=== PATIENT | female | born 1965 | race Caucasian/White ===

== ENCOUNTER → 2019-04-12 10:07 | Outpatient (BNVA) | payer MEDICARE, OTHER, SELFPAY | PROVIDERS: Family Provider Family Medicine; PCP Family Medicine; Visit Provider Specialist | DX: G43.711 Chronic migraine without aura, intractable, with status migrainosus (principal) | CPT/HCPCS: 64615; J0585 ==

== ENCOUNTER 2019-04-17 15:01 | Outpatient (CLI) | payer MEDICARE, OTHER, SELFPAY ==
--- NOTE | 2019-04-17 15:06 | XR_ITS ---
WS: [id number] CHEST 2 VIEWS HISTORY: SHORTNESS OF BREATH COMPARISON: 04/06/2018 Lungs: Mild pulmonary hyperexpansion with emphysema. Improved aeration at the lingula and RIGHT middl e lobe. No pneumonia. Normal vasculature. Cardiac size: Normal. Mediastinum/Aorta: Normal mediastinum. Bones: Normal. XR/XR chest 2V* [id number] IMPRESSION: Mild emphysema. No pneumonia.
== END 2019-04-17 15:02 | disposition home or self-care (01) ==
LOC: RADWPI 15:05
PROVIDERS: Family Provider Family Medicine; PCP Family Medicine; Referring Provider Family Medicine; Visit Provider Family Medicine
DX: J43.9 Emphysema, unspecified (principal); R06.02 Shortness of breath
CPT/HCPCS: 71046

== ENCOUNTER → 2019-04-19 09:42 | Outpatient (BNVA) | payer MEDICARE, OTHER, SELFPAY | PROVIDERS: Family Provider Family Medicine; PCP Family Medicine; Visit Provider Psychiatry & Neurology Psychiatry | DX: F33.40 Major depressive disorder, recurrent, in remission, unspecified (principal); F41.0 Panic disorder [episodic paroxysmal anxiety]; F43.12 Post-traumatic stress disorder, chronic | CPT/HCPCS: 99213 ==

== ENCOUNTER → 2019-06-06 13:41 | Outpatient (BNVA) | payer MEDICARE, OTHER, SELFPAY | PROVIDERS: Family Provider Family Medicine; PCP Family Medicine; Visit Provider Psychiatry & Neurology Psychiatry | DX: F33.40 Major depressive disorder, recurrent, in remission, unspecified (principal); F41.0 Panic disorder [episodic paroxysmal anxiety]; F43.12 Post-traumatic stress disorder, chronic | CPT/HCPCS: 99213 ==

== ENCOUNTER 2019-06-20 14:15 | Outpatient (CLI) | payer MEDICARE, OTHER, SELFPAY ==
--- NOTE | 2019-06-20 14:34 | XR_ITS ---
WS: [id number] XR chest 2V* [id number] REASON FOR EXAM: RIB PAIN RIGHT SIDED FINDINGS: Cervical rib is seen on the right side. [place] the lung heath are mildly hyper aerated. There is granulomas in the left hilum. The heart is not enlarged. The lung heath show no definite pneumonia, pleural effusion, pulmonary edema, or mass effect. The hilum and apices otherwise normal. The rib cage did not show definite fractures in the frontal views. XR/XR chest 2V* [id number] IMPRESSION: Chronic obstructive pulmonary disease. Calcified granulomas left hilum.
== END 2019-06-20 14:16 | disposition home or self-care (01) ==
PROVIDERS: Family Provider Family Medicine; PCP Family Medicine; Visit Provider Nurse Practitioner Family
DX: J44.9 Chronic obstructive pulmonary disease, unspecified (principal); R07.81 Pleurodynia; J84.10 Pulmonary fibrosis, unspecified
CPT/HCPCS: 71046

== ENCOUNTER → 2019-07-26 11:45 | Outpatient (BNVA) | payer MEDICARE, OTHER, SELFPAY | PROVIDERS: Family Provider Family Medicine; PCP Family Medicine; Visit Provider Specialist | DX: G43.711 Chronic migraine without aura, intractable, with status migrainosus (principal) | CPT/HCPCS: 64615; J0585 ==

== ENCOUNTER → 2019-09-05 08:18 | Outpatient (BNVA) | payer MEDICARE, OTHER, SELFPAY | PROVIDERS: Family Provider Family Medicine; PCP Family Medicine; Visit Provider Psychiatry & Neurology Psychiatry | DX: F33.40 Major depressive disorder, recurrent, in remission, unspecified (principal); F41.0 Panic disorder [episodic paroxysmal anxiety]; F43.12 Post-traumatic stress disorder, chronic | CPT/HCPCS: 99214 ==

== ENCOUNTER → 2019-10-17 07:38 | Outpatient (BNVA) | payer MEDICARE, OTHER, SELFPAY | PROVIDERS: Family Provider Family Medicine; PCP Family Medicine; Visit Provider Psychiatry & Neurology Psychiatry | DX: F43.12 Post-traumatic stress disorder, chronic (principal); F41.0 Panic disorder [episodic paroxysmal anxiety]; F33.9 Major depressive disorder, recurrent, unspecified | CPT/HCPCS: 99214 ==

== ENCOUNTER 2019-11-17 14:20 | Emergency (ER) | payer MEDICARE, OTHER, SELFPAY ==
[2019-11-17] VITALS (8 sets, daily range): BP systolic 97–124; BP diastolic 66–78; PULSE 89–114; RESP 20–26; TEMP 37.2–37.6; O2SAT 93–99; BMI 22.9
--- NOTE | 2019-11-17 15:30 | XRR_ITS ---
PROCEDURE INFORMATION: Exam: XR Chest, 1 View Exam date and time: 11/17/2019 3:33 PM Age: 54 years old Clinical indication: Cough; Additional info: Cough/congestion TECHNIQUE: Imaging protocol: XR of the chest Views: 1 view. COMPARISON: CR XR chest 2V* [id number] 06/20/2019 2:40 PM FINDINGS: Lungs: The lungs are hyperinflated with unchanged basilar prominence compatible with probable COPD with fibrosis.No consolidation. The pulmonary vascularity is within normal limits. Pleural space: Unremarkable. No pleural effusion. No pneumothorax. Heart/Mediastinum: Unremarkable. No cardiomegaly. Bones/joints: No acute abnormality. XR/XR chest 1V portable [id number] IMPRESSION: No acute findings.
--- NOTE | 2019-11-17 15:38 | ED_ITS ---
HPI - Fever General: Chief Complaint: Fever Stated Complaint: sob Time Seen by Provider: 11/17/19 15:19 History of Present Illness: HPI Narrative: 54-year-old pleasant female presents to the emergency department with cough and congestion for the past 2 days. She reports fever at home of 102.8 that started last night. She reports history of COPD with chronic oxygen use, stopped smoking in 2013. She reports green sputum production and wheezing. She reports no ill contacts. Reports headache when fever occurs. She has been tolerating oral fluid and liquids. She denies nausea vomiting. She reports chronic abdominal pain, RUQ for years under the care of gastroenterology and [place], she reports no change to her pain. MD elicited complaint: fever and malaise Onset (ago): day(s) (3-4) Exacerbating factors: exertion Associated symptoms: Reports abdominal pain (Chronic), chills, cough, headache(s), nasal congestion and nausea; Deny chest pain, confusion, dysuria or vomiting Treatments prior to arrival fever: acetaminophen Review of Systems General: Reports: 10 or more systems reviewed and unremarkable except in HPI and below Const: Reports: fever(s), chills, body aches, fatigue and malaise Eyes: Denies: blurry vision or eye redness ENMT: Reports: nasal congestion Card: Denies: chest pain, palpitations or irregular heart rhythm Resp: Reports: dyspnea, productive cough and wheezing; Denies: non-productive cough GI: Reports: abdominal pain (Chronic) and nausea; Denies: vomiting or dysphagia : Denies: difficulty voiding or dysuria Musc: Denies: back pain Skin/Breast: Denies: rash or pruritus Neuro: Reports: headache(s); Denies: sensory changes, difficulty walking or confusion Psych: Reports: anxiety (Per history) and depression (Per history) Sven/Lymph: Denies: easy bruising PFS ED PFSH: Medical History (Updated 11/17/19 @ 17:35 by EDSON Richter) Depression, major, recurrent, in remission Panic disorder [episodic paroxysmal anxiety] Post-traumatic stress disorder, chronic Social History Smoking and tobacco status: never smoked Second hand smoke exposure: No Physical Exam Const: COMMON NORMALS: no acute distress, patient oriented x3, healthy appearing and alert GENERAL APPEARANCE: cooperative and well hydrated HENMT: COMMON NORMALS: normocephalic, TM's normal bilaterally, Normal external nose present and moist oral mucous membranes HEAD & SCALP: normocephalic FACE & SINUS: normal facial exam and sinuses nontender NOSE: Normal external nose present and Normal nares present TYMPANIC MEMBRANE: TM's normal bilaterally MOUTH: Normal oral and palatal mucosa present THROAT: posterior oropharynx normal Eye: COMMON NORMALS: Equal, round and reactive pupils present and EOMs intact bilaterally GENERAL EYE: appearance normal, both eyes and all related structures PUPIL: Yes Equal, round and reactive pupils present Neck/C-Spine: COMMON NORMALS: full ROM and no lymphadenopathy GENERAL: Yes normal visual inspection and Yes trachea midline CERVICAL SPINE: Yes cervical ROM normal Lymph: LYMPHATIC: no lymphadenopathy noted Chest: COMMONS NORMALS: normal inspection of the chest Resp: COMMON NORMALS: normal respiratory effort EFFORT & INSPECTION: Yes able to speak in complete sentences AUSCULTATION: rhonchi throughout and diminished lung sounds bilateral Cardio: COMMON NORMALS: regular rhythm, S1 normal heart sound present and S2 normal heart sound present RHYTHM: regular rhythm HEART SOUNDS: S1 normal heart sound present and S2 normal heart sound present GI: COMMON NORMALS: Soft to palpation INSPECTION: Yes normal to inspection AUSCULTATION: Yes normoactive bowel sounds PALPATION: Yes Soft to palpation and Yes Tenderness to palpation present (GI) Details: RUQ : COMMON NORMALS: Yes no CVA tenderness BLADDER/KIDNEY EXAM: Yes no CVA tenderness Back/Pelvis: COMMON NORMALS: no CVA tenderness and thoracic and lumbar spine normal to inspection Extremity: COMMON NORMALS: normal to inspection and capillary refill normal Neuro: COMMON NORMALS: patient oriented x3 and no focal motor deficits SENSORIUM/ORIENTATION: Yes alert Psych: COMMON NORMALS: mental status grossly normal, Normal thought process present and cooperative ACTIVITY/MOTOR BEHAVIOR: Yes appropriate eye contact THOUGHT PROCESS: Normal thought process present Skin: COMMON NORMALS: no rashes or lesions noted and turgor normal GENERAL SKIN EXAM: no rashes or lesions noted and turgor normal Course ED course: 54-year-old female patient presents to the emergency room with cough and congestion. Chest x-ray negative for infiltrate or acute disease. She requests to go home, does not want stay in the hospital. COVID-19 testing pending at this time. She agrees to stay quarantined. O2 saturation has maintained 95 to 99% on 2 L nasal cannula, chronic O2 use at home. Vital Signs: Vital signs: Vital Signs Temperature 99.6 F 11/17/19 15:08 Pulse Rate 89 11/17/19 18:00 Respiratory Rate 24 H 11/17/19 16:39 Blood Pressure 124/67 11/17/19 16:39 Pulse Oximetry 99 11/17/19 18:00 MDM - Fever Lab Data: Labs: Lab Results 11/17/19 11/17/19 11/17/19 Range/Units 16:22 16:26 16:26 WBC 16.0 H (4.0-10.0) 10^3/ uL RBC 4.17 (4.1-5.3) 10^6/u L Hgb 13.2 (11.5-15.3) g/dL Hct 40.8 (37.0-47.0) % MCV 97.8 (81-99) fL MCH 31.7 (28.0-34.0) pg MCHC 32.4 (30.0-36.0) g/dL RDW 12.1 (12.1-15.1) % Plt Count 229 (130-400) 10^3/c mm MPV 10.2 (7.4-10.4) fL Neut % (Auto) 82.4 % Lymph % (Auto) 9.1 % [place] % (Auto) 7.5 % Eos % (Auto) 0.3 % Baso % (Auto) 0.3 % Neut # (Auto) 13.16 H (1.8-7.7) 10^3/u L Lymph # (Auto) 1.5 (0.8-4.8) 10^3/u L [place] # (Auto) 1.2 H (0.2-0.9) 10^3/u L Eos # (Auto) 0.0 (0.0-0.8) 10^3/u L Baso # (Auto) 0.1 (0.0-0.1) 10^3/u L Nucleated RBC % (a uto) 0 % Nucleated RBCs # 0.0 /100WBC Sodium 140 (136-145) mmol/L Potassium 4.3 (3.5-5.1) mmol/L Chloride 103 (98-107) mmol/L Carbon Dioxide 28 (22-29) mmol/L Anion Gap 13.3 (5-19) BUN 11 (6-20) mg/dL Creatinine 0.8 (0.5-0.9) mg/dL GFR Calculation 74.7 L (90-130) mL/min Glucose 105 (65-115) mg/dL Calculated Osmolal ity 286 (285-295) mOsm/k g Lactate (0.5-2.2) mmol/L Calcium 9.0 (8.5-10.5) mg/dL Total Bilirubin 0.5 (0.15-1.2) mg/dL AST 20 (0-32) U/L ALT 9 (0-33) U/L Alkaline Phosphata se 91 (35-105) IU/L Total Protein 6.3 L (6.6-8.7) g/dL Albumin 4.4 (3.5-5.2) g/dL Globulin 1.9 (1.3-4.6) g/dL Lipase 12 L (13-60) U/L Urine Color Straw (Yellow) Urine Appearance Clear (CLEAR) Urine pH 7 (5-7) Ur Specific Gravit y 1.005 (1.005-1.030) Urine Protein Neg (Negative) Urine Glucose (UA) Norm (Normal) Urine Ketones Negative (Negative) Urine Blood Neg (Negative) Urine Nitrate Negative (Negative) Urine Bilirubin Neg (NEGATIVE) Urine Urobilinogen Norm (Negative) mg/dL Ur Leukocyte Trinh ase Negative (Negative) 11/17/19 Range/Units 16:26 WBC (4.0-10.0) 10^3/ uL RBC (4.1-5.3) 10^6/u L Hgb (11.5-15.3) g/dL Hct (37.0-47.0) % MCV (81-99) fL MCH (28.0-34.0) pg MCHC (30.0-36.0) g/dL RDW (12.1-15.1) % Plt Count (130-400) 10^3/c mm MPV (7.4-10.4) fL Neut % (Auto) % Lymph % (Auto) % [place] % (Auto) % Eos % (Auto) % Baso % (Auto) % Neut # (Auto) (1.8-7.7) 10^3/u L Lymph # (Auto) (0.8-4.8) 10^3/u L [place] # (Auto) (0.2-0.9) 10^3/u L Eos # (Auto) (0.0-0.8) 10^3/u L Baso # (Auto) (0.0-0.1) 10^3/u L Nucleated RBC % (a uto) % Nucleated RBCs # /100WBC Sodium (136-145) mmol/L Potassium (3.5-5.1) mmol/L Chloride (98-107) mmol/L Carbon Dioxide (22-29) mmol/L Anion Gap (5-19) BUN (6-20) mg/dL Creatinine (0.5-0.9) mg/dL GFR Calculation (90-130) mL/min Glucose (65-115) mg/dL Calculated Osmolal ity (285-295) mOsm/k g Lactate 1.1 (0.5-2.2) mmol/L Calcium (8.5-10.5) mg/dL Total Bilirubin (0.15-1.2) mg/dL AST (0-32) U/L ALT (0-33) U/L Alkaline Phosphata se (35-105) IU/L Total Protein (6.6-8.7) g/dL Albumin (3.5-5.2) g/dL Globulin (1.3-4.6) g/dL Lipase (13-60) U/L Urine Color (Yellow) Urine Appearance (CLEAR) Urine pH (5-7) Ur Specific Gravit y (1.005-1.030) Urine Protein (Negative) Urine Glucose (UA) (Normal) Urine Ketones (Negative) Urine Blood (Negative) Urine Nitrate (Negative) Urine Bilirubin (NEGATIVE) Urine Urobilinogen (Negative) mg/dL Ur Leukocyte Trinh ase (Negative) Imaging Data^: CXR: Radiologist's impression: no acute disease Discharge Plan Discharge Patient Disposition: Home Clinical Impression: COPD (chronic obstructive pulmonary disease) with acute bronchitis Condition: Stable Prescriptions: New doxycycline hyclate 100 mg tablet 100 mg PO BID 7 Days Qty: 14 RF: 0 Tessalon Perles 100 mg capsule 100 mg PO Q4H PRN (Reason: cough) Qty: 14 RF: 0 prednisone 20 mg tablet 20 mg PO BID 5 Days Qty: 10 RF: 0 No Action levalbuterol tartrate [Xopenex HFA] 45 mcg/actuation HFA aerosol inhaler 2 inh INHALATION Q6H PRN (Reason: shortness of breath) RF: 0 montelukast [Singulair] 10 mg tablet 10 mg PO QDAY RF: 0 Spiriva Respimat 2.5 mcg/actuation mist 2 puff INHALATION QAM RF: 0 bupropion HCl [Wellbutrin XL] 150 mg tablet extended release 24 hr 150 mg PO DAILY Qty: 30 RF: 5 bupropion HCl [Wellbutrin XL] 300 mg tablet extended release 24 hr 300 mg PO DAILY Qty: 30 RF: 5 methylphenidate HCl [Ritalin] 20 mg tablet 20 mg PO BID 30 Days Qty: 60 RF: 0 sertraline 50 mg tablet 150 mg PO DAILY Qty: 90 RF: 5 methylphenidate HCl [Ritalin] 20 mg tablet 20 mg PO BID 30 Days Qty: 60 RF: 0 sumatriptan succinate 100 mg tablet 100 mg PO Q2H PRN (Reason: migraine headache) Qty: 9 RF: 4 temazepam 15 mg capsule 15 mg PO .HS Qty: 14 RF: 0 topiramate [Topamax] 50 mg tablet 50 mg PO BID Qty: 60 RF: 2 Discharge Orders: Discharge Order (Routine); Ordered 11/17/19 Ordered By: Tessy Champion Discharge Diet: Usual diet Discharge Activity: Resume usual activity Patient Instructions: COPD - Emphysema, Chronic Obstructive Pulmonary Disease (ED) Activity Restrictions/Additional Instructions: Take antibiotics until all gone increase fluid intake - drink lots of fluids follow up with your primary care physician next week Continue breathing treatments as directed Take prednisone with food If you develop difficulty breathing, blood in sputum, worsening cough or more concerning symptoms, return to the ED Coding Level of Care Code ED Counter Supply Worker for Sanjana Fwd Exam Comprehensive
[2019-11-17] MEDS: albuterol 8 gm MDI 2 PUFF INHALATION (15:52)
[2019-11-17 16:46] LABS: Basophils # 0.1 10^3/uL (0.0-0.1); Basophils % 0.3 %; Eosinophils % 0.3 %; Hematocrit 40.8 % (37.0-47.0); Hemoglobin 13.2 g/dL (11.5-15.3); Lymphocytes # 1.5 10^3/uL (0.8-4.8); Lymphocytes % 9.1 %; Mean Corpuscular HGB Conc 32.4 g/dL (30.0-36.0); Mean Corpuscular Hemoglobin 31.7 pg (28.0-34.0); Mean Corpuscular Volume 97.8 fL (81-99); Mean Platelet Volume 10.2 fL (7.4-10.4); Monocytes # 1.2 10^3/uL (0.2-0.9); Monocytes % 7.5 %; Neutrophils # 13.16 10^3/uL (1.8-7.7); Neutrophils % 82.4 %; Nucleated Red Blood Cells % 0 %; Platelet Count 229 10^3/cmm (130-400); Red Blood Count 4.17 10^6/uL (4.1-5.3); Red Cell Distribution Width 12.1 % (12.1-15.1)
[2019-11-17 16:59] LABS: Add Urine Microscopic? NO
[2019-11-17 17:14] LABS: Bilirubin Urine Neg (NEGATIVE); Blood Urine Neg (Negative); Glucose Urine UA Norm (Normal); Ketones Urine Negative (Negative); Leukocyte Esterase Urine Negative (Negative); Nitrate Urine Negative (Negative); Protein Urine Neg (Negative); Specific Gravity, Urine 1.005 (1.005-1.030); Urine Appearance Clear (CLEAR); Urine Color Straw (Yellow); Urobilinogen Urine Norm (Negative); pH Urine 7 (5-7)
[2019-11-17 17:20] LABS: Alanine Aminotransferase 9 U/L (0-33); Albumin Level 4.4 g/dL (3.5-5.2); Alkaline Phosphatase 91 IU/L (35-105); Blood Urea Nitrogen 11 mg/dL (6-20); Carbon Dioxide 28 mmol/L (22-29); Chloride 103 mmol/L (98-107); Globulin 1.9 g/dL (1.3-4.6); Glomerular Filtration Rate 74.7 mL/min (90-130); Glucose 105 mg/dL (65-115); Lipase 12 U/L (13-60); Osmolality Calculated 286 mOsm/kg (285-295); Sodium 140 mmol/L (136-145); Total Bilirubin 0.5 mg/dL (0.15-1.2); Total Protein 6.3 g/dL (6.6-8.7)
[2019-11-17 17:25] LABS: Anion Gap 13.3 (5-19); Aspartate Amino Transferase 20 U/L (0-32); Potassium 4.3 mmol/L (3.5-5.1)
[2019-11-17 18:08] LABS: Lactate (Lactic Acid level) 1.1 mmol/L (0.5-2.2)
[2019-11-17] MEDS: acetaminophen 325 mg Tablet 650 MG PO (18:34)
[2019-11-19 14:34] LABS: Quest SARS-CoV-2 RNA NOT DETECTED (NOT DETECTED)
== END 2019-11-17 18:46 | disposition home or self-care (01) ==
PROVIDERS: Emergency Provider Nurse Practitioner Family
DX: J44.0 Chronic obstructive pulmonary disease with (acute) lower respiratory infection (principal)
CPT/HCPCS: 12345; 71045; 80053; 81003; 83605; 83690; 85025; 87635; 94640; 99283; J3535

== ENCOUNTER → 2019-11-26 08:14 | Outpatient (BNVA) | payer MEDICARE, OTHER, SELFPAY | PROVIDERS: Visit Provider Psychiatry & Neurology Psychiatry | DX: F43.12 Post-traumatic stress disorder, chronic (principal); F41.0 Panic disorder [episodic paroxysmal anxiety]; F33.9 Major depressive disorder, recurrent, unspecified | CPT/HCPCS: 99214 ==

== ENCOUNTER → 2019-12-27 08:09 | Outpatient (BNVA) | payer MEDICARE, OTHER, SELFPAY | PROVIDERS: Visit Provider Psychiatry & Neurology Psychiatry | DX: F43.12 Post-traumatic stress disorder, chronic (principal); F41.0 Panic disorder [episodic paroxysmal anxiety]; F33.9 Major depressive disorder, recurrent, unspecified; F33.42 Major depressive disorder, recurrent, in full remission; F41.1 Generalized anxiety disorder | CPT/HCPCS: 99214 ==

== ENCOUNTER 2020-02-15 10:57 | Outpatient (CLI) | payer MEDICARE, OTHER, SELFPAY ==
--- NOTE | 2020-02-15 11:04 | MM_ITS ---
WS: [id number] BILATERAL DIGITAL SCREENING MAMMOGRAPHY WITH CAD CLINICAL INFORMATION: SCREENING HISTORY: Screening mammogram. Bilateral breast soreness COMPARISON: TECHNIQUE: Bilateral CC and MLO views. FINDINGS: The breasts are composed of heterogeneous fibroglandular density tissue, which can limit the detectio n of small underlying mass lesions. No suspicious mass, asymmetry, calcifications, or architectural d istortion. No evidence of malignancy. Stable punctate calcifications. MM/[place] [id number] IMPRESSION: BI-RADS: 2-Benign FOLLOW UP: 1 Year Follow-up Recommend return to annual screening mammography.
== END 2020-02-15 10:58 | disposition home or self-care (01) ==
PROVIDERS: PCP Nurse Practitioner Family; Visit Provider Nurse Practitioner Family
DX: Z12.31 Encounter for screening mammogram for malignant neoplasm of breast (principal)
CPT/HCPCS: 77067

== ENCOUNTER → 2020-02-21 08:01 | Outpatient (BNVA) | payer MEDICARE, OTHER, SELFPAY | PROVIDERS: PCP Nurse Practitioner Family; Visit Provider Psychiatry & Neurology Psychiatry | DX: F43.12 Post-traumatic stress disorder, chronic (principal); F41.0 Panic disorder [episodic paroxysmal anxiety]; F33.9 Major depressive disorder, recurrent, unspecified; F33.42 Major depressive disorder, recurrent, in full remission; G47.33 Obstructive sleep apnea (adult) (pediatric) | CPT/HCPCS: 99214 ==

== ENCOUNTER → 2020-03-20 08:17 | Outpatient (BNVA) | payer MEDICARE, OTHER, SELFPAY | PROVIDERS: PCP Nurse Practitioner Family; Visit Provider Psychiatry & Neurology Psychiatry | DX: F43.12 Post-traumatic stress disorder, chronic (principal); F41.0 Panic disorder [episodic paroxysmal anxiety]; F33.9 Major depressive disorder, recurrent, unspecified; G47.419 Narcolepsy without cataplexy; G47.33 Obstructive sleep apnea (adult) (pediatric); F33.42 Major depressive disorder, recurrent, in full remission | CPT/HCPCS: 99213 ==

== ENCOUNTER → 2020-06-19 10:34 | Outpatient (BNVA) | payer MEDICARE, OTHER, SELFPAY | PROVIDERS: PCP Nurse Practitioner Family; Visit Provider Specialist | DX: G43.711 Chronic migraine without aura, intractable, with status migrainosus (principal) | CPT/HCPCS: 64615; J0585 ==

== ENCOUNTER 2020-07-07 20:00 | Outpatient (CLI) | payer MEDICARE, OTHER, SELFPAY | END 2020-07-07 20:01 | disposition home or self-care (01) | LOC: SLEEP 07-08 08:42 | PROVIDERS: PCP Nurse Practitioner Family; Visit Provider Family Medicine | DX: G47.39 Other sleep apnea (principal); J44.9 Chronic obstructive pulmonary disease, unspecified | CPT/HCPCS: 95810 ==

== ENCOUNTER → 2020-08-12 07:55 | Outpatient (BNVA) | payer MEDICARE, OTHER, SELFPAY | PROVIDERS: PCP Nurse Practitioner Family; Visit Provider Psychiatry & Neurology Psychiatry | DX: F33.9 Major depressive disorder, recurrent, unspecified (principal); F43.12 Post-traumatic stress disorder, chronic; F41.0 Panic disorder [episodic paroxysmal anxiety]; G47.419 Narcolepsy without cataplexy | CPT/HCPCS: 99214 ==

== ENCOUNTER → 2020-08-27 12:55 | Outpatient (BNVA) | payer MEDICARE, OTHER, SELFPAY | PROVIDERS: PCP Nurse Practitioner Family; Visit Provider Psychiatry & Neurology Psychiatry | DX: F33.41 Major depressive disorder, recurrent, in partial remission (principal); G47.419 Narcolepsy without cataplexy; F41.0 Panic disorder [episodic paroxysmal anxiety]; F43.12 Post-traumatic stress disorder, chronic; Z63.0 Problems in relationship with spouse or partner | CPT/HCPCS: 99215 ==

== ENCOUNTER → 2020-09-11 12:50 | Outpatient (BNVA) | payer MEDICARE, OTHER, SELFPAY | PROVIDERS: PCP Nurse Practitioner Family; Visit Provider Specialist | DX: G43.711 Chronic migraine without aura, intractable, with status migrainosus (principal); M79.7 Fibromyalgia; Z87.891 Personal history of nicotine dependence | CPT/HCPCS: 64615; 99213; J0585 ==

== ENCOUNTER → 2020-09-17 13:47 | Outpatient (BNVA) | payer MEDICARE, OTHER, SELFPAY | PROVIDERS: PCP Nurse Practitioner Family; Visit Provider Psychiatry & Neurology Psychiatry | DX: F43.12 Post-traumatic stress disorder, chronic (principal); F41.0 Panic disorder [episodic paroxysmal anxiety]; F33.42 Major depressive disorder, recurrent, in full remission; G47.419 Narcolepsy without cataplexy; Z63.0 Problems in relationship with spouse or partner | CPT/HCPCS: 99214 ==

== ENCOUNTER 2020-11-10 14:40 | Outpatient (CLI) | payer MEDICARE, OTHER, SELFPAY ==
--- NOTE | 2020-11-10 14:52 | US_ITS ---
WS: [id number] ULTRASOUND THYROID TECHNIQUE: Ultrasound of the thyroid. CLINICAL INFORMATION: ENLARGED THYROID COMPARISON: and July 2016 FINDINGS: Thyroid: Enlarged heterogeneous multinodular thyroid. Left lobe is larger than right. Right thyroid lobe: 4.8 cm x 2.2 cm x 1.4 cm. 2 small subcentimeter right-sided thyroid nodules. 0.5 x 0.4 x 0.8 cm 0.8 x 0.6 to 0.9 cm Left thyroid lobe: 5.4 cm x 2.2 cm x 2.1 cm. Complex heterogeneous nodule measuring 1.5 x 2.1 cm. Isthmus: 0.6 mm. Cervical lymphadenopathy: No lymphadenopathy. A few incidental cervical lymph nodes. US/US thyroid [id number] IMPRESSION: 1. Enlarged heterogeneous multinodular thyroid left greater than right. 2. Dominant heterogeneous complex nodule in the left mid and lower thyroid brandon suring 1.5 x 2.1 cm. This is similar in appearance to 2017. Recommend 12 month follow-up. 3. 2 small subcentimeter right thyroid nodules appear stable since 2017
== END 2020-11-10 14:41 | disposition home or self-care (01) ==
LOC: RAD 14:45
PROVIDERS: PCP Nurse Practitioner Family; Visit Provider Nurse Practitioner Family
DX: E04.9 Nontoxic goiter, unspecified (principal); E04.2 Nontoxic multinodular goiter
CPT/HCPCS: 76536

== ENCOUNTER → 2020-11-14 12:43 | Outpatient (BNVA) | payer MEDICARE, OTHER, SELFPAY | PROVIDERS: PCP Nurse Practitioner Family; Visit Provider Psychiatry & Neurology Psychiatry | DX: F33.42 Major depressive disorder, recurrent, in full remission (principal); F43.12 Post-traumatic stress disorder, chronic; F41.0 Panic disorder [episodic paroxysmal anxiety]; G47.419 Narcolepsy without cataplexy; Z63.0 Problems in relationship with spouse or partner | CPT/HCPCS: 99214 ==

== ENCOUNTER → 2020-12-04 14:05 | Outpatient (BNVA) | payer MEDICARE, OTHER, SELFPAY | PROVIDERS: PCP Nurse Practitioner Family; Visit Provider Specialist | DX: G43.711 Chronic migraine without aura, intractable, with status migrainosus (principal); M79.7 Fibromyalgia; G25.81 Restless legs syndrome | CPT/HCPCS: 64615; 99213; 99214; J0585 ==

== ENCOUNTER → 2021-01-08 13:10 | Outpatient (BNVA) | payer MEDICARE, OTHER, SELFPAY | PROVIDERS: PCP Nurse Practitioner Family; Visit Provider Psychiatry & Neurology Psychiatry | DX: F33.42 Major depressive disorder, recurrent, in full remission (principal); F41.0 Panic disorder [episodic paroxysmal anxiety]; F43.12 Post-traumatic stress disorder, chronic; G47.419 Narcolepsy without cataplexy | CPT/HCPCS: 99213 ==

== ENCOUNTER → 2021-03-18 13:52 | Outpatient (BNVA) | payer MEDICARE, OTHER, SELFPAY | PROVIDERS: PCP Nurse Practitioner Family; Visit Provider Psychiatry & Neurology Psychiatry | DX: F33.42 Major depressive disorder, recurrent, in full remission (principal); F41.0 Panic disorder [episodic paroxysmal anxiety]; F43.12 Post-traumatic stress disorder, chronic; G47.419 Narcolepsy without cataplexy | CPT/HCPCS: 99214 ==

== ENCOUNTER 2021-03-19 14:24 | Outpatient (CLI) | payer MEDICARE, OTHER, SELFPAY ==
--- NOTE | 2021-03-19 14:31 | XRR_ITS ---
PROCEDURE INFORMATION: Exam: XR Chest Exam date and time: 03/19/2021 2:31 PM Age: 55 years old Clinical indication: Condition or disease; Lung condition and disease; Copd; With exacerbation; Cough and dyspnea; Additional info: Cough/dyspnea/acute exacerbation copd TECHNIQUE: Imaging protocol: XR of the chest. Views: 2 views. COMPARISON: CR XR chest 1V portable [id number] 11/17/2019 3:54 PM FINDINGS: Lungs: Hyperinflated lungs with right basilar scarring. No consolidation. Pleural spaces: Unremarkable. No pleural effusion. No pneumothorax. Heart/Mediastinum: Unremarkable. No cardiomegaly. Bones/joints: Unremarkable. XR/XR chest 2V* [id number] IMPRESSION: No acute findings.
== END 2021-03-19 14:25 | disposition home or self-care (01) ==
LOC: RAD 14:29
PROVIDERS: PCP Nurse Practitioner Family; Visit Provider Nurse Practitioner Family
DX: R05.9 Cough, unspecified (principal); R06.00 Dyspnea, unspecified; J44.1 Chronic obstructive pulmonary disease with (acute) exacerbation
CPT/HCPCS: 71046

== ENCOUNTER → 2021-04-30 10:59 | Outpatient (BNVA) | payer MEDICARE, OTHER, SELFPAY | PROVIDERS: PCP Nurse Practitioner Family; Visit Provider Specialist | DX: R55 Syncope and collapse (principal); G43.711 Chronic migraine without aura, intractable, with status migrainosus; Z87.891 Personal history of nicotine dependence | CPT/HCPCS: 64615; 99213; 99214; J0585 ==

== ENCOUNTER → 2021-05-20 07:30 | Outpatient (BNVA) | payer MEDICARE, OTHER, SELFPAY | PROVIDERS: PCP Nurse Practitioner Family; Visit Provider Psychiatry & Neurology Psychiatry | DX: F41.0 Panic disorder [episodic paroxysmal anxiety] (principal); F43.12 Post-traumatic stress disorder, chronic; F33.42 Major depressive disorder, recurrent, in full remission; G47.419 Narcolepsy without cataplexy | CPT/HCPCS: 99214 ==

== ENCOUNTER → 2021-06-09 10:13 | Outpatient (BNVA) | payer MEDICARE, OTHER, SELFPAY | PROVIDERS: PCP Nurse Practitioner Family; Visit Provider Specialist | DX: R55 Syncope and collapse (principal); Z87.891 Personal history of nicotine dependence | CPT/HCPCS: 95816 ==

== ENCOUNTER → 2021-08-14 10:10 | Outpatient (BNVA) | payer MEDICARE, OTHER, SELFPAY | PROVIDERS: PCP Nurse Practitioner Family; Visit Provider Psychiatry & Neurology Psychiatry | DX: F33.42 Major depressive disorder, recurrent, in full remission (principal); F41.0 Panic disorder [episodic paroxysmal anxiety]; F43.12 Post-traumatic stress disorder, chronic; G47.419 Narcolepsy without cataplexy | CPT/HCPCS: 99215 ==

== ENCOUNTER → 2021-09-10 14:25 | Outpatient (BNVA) | payer MEDICARE, OTHER, SELFPAY | PROVIDERS: PCP Nurse Practitioner Family; Visit Provider Specialist | DX: G43.711 Chronic migraine without aura, intractable, with status migrainosus (principal) | CPT/HCPCS: 64615; J0585 ==

== ENCOUNTER → 2021-09-11 10:39 | Outpatient (BNVA) | payer MEDICARE, OTHER, SELFPAY | PROVIDERS: PCP Nurse Practitioner Family; Visit Provider Psychiatry & Neurology Psychiatry | DX: F33.42 Major depressive disorder, recurrent, in full remission (principal); F43.12 Post-traumatic stress disorder, chronic; F41.0 Panic disorder [episodic paroxysmal anxiety]; G47.419 Narcolepsy without cataplexy | CPT/HCPCS: 99214 ==

== ENCOUNTER → 2021-12-03 13:06 | Outpatient (BNVA) | payer MEDICARE, OTHER, SELFPAY | PROVIDERS: PCP Nurse Practitioner Family; Visit Provider Specialist | DX: G43.711 Chronic migraine without aura, intractable, with status migrainosus (principal); R55 Syncope and collapse; J44.9 Chronic obstructive pulmonary disease, unspecified; Z99.81 Dependence on supplemental oxygen | CPT/HCPCS: 64615; 99213; J0585 ==

== ENCOUNTER 2022-02-16 12:11 | Outpatient (CLI) | payer MEDICARE, OTHER, SELFPAY ==
--- NOTE | 2022-02-16 12:45 | USCV_ITS ---
Leah Machuca Age: 56 Gender: F : 1965 Exam Date: 02/16/2022 12:31 Ordering Phys: Shaneka Dubon MD Technologist: JERICHO [place] [facility] [place]ication: DYSPENA BP: 110 / 77 HR: 60 Rhythm: Sinus Technical Quality: Poor secondary to COPD MEASUREMENTS (Male / Female) Normal Values 2D ECHO LVOT Diameter 2.0 cm LV Ejection Fraction MOD 2C 59.3 % LV Ejection Fraction 2C AL 60.6 % LA Diameter 3.1 cm LA Width 3.2 cm LA Height 4.6 cm RA Width 3.6 cm RA Height 4.0 cm Aorta at Sinotubular Diameter 1.9 cm IVC Diameter 1.9 cm M-MODE Aortic Annulus Diameter 2.6 cm LA Ao Ratio MM 1.1 MV E Point Septal Separation 0.7 cm DOPPLER AV Peak Velocity 152.0 cm/s LVOT Peak Velocity 106.0 cm/s AV Area Cont Eq vti 2.2 cm squared AV Area Cont Eq pk 2.2 cm squared MV Peak Velocity 111.0 cm/s MV Area PHT 3.2 cm squared Mitral E to A Ratio 0.8 MV E' Velocity 45.5 cm/s Mitral E to MV E' Ratio 8.1 Mitral E to LV E' Lateral Ratio 7.5 Mitral E to LV E' Septal Ratio 8.9 TV Peak E Velocity 66.0 cm/s Right Atrial Pressure 3.0 mmHg PV Peak Velocity 105.0 cm/s RV Acceleration Time 0.2 s RV Ejection Time 0.4 s RV AcT/ET 0.5 FINDINGS Left Ventricle Normal left ventricular size, systolic function and wall thickness, with no regional wall motion abnormalities. Left ventricular ejection fraction is estimated at 70 %. Normal diastolic function. Right Ventricle Normal right ventricular size and systolic function. Right Atrium Normal right atrial size. Left Atrium Normal left atrial size. Mitral Valve Structurally normal mitral valve. No mitral valve stenosis. No mitral valve regurgitation. Aortic Valve Probably trileaflet aortic valve. No aortic valve stenosis. No aortic valve regurgitation. Tricuspid Valve Structurally normal tricuspid valve. Trace to mild tricuspid valve regurgitation. Pulmonic Valve Pulmonic valve not well visualized. Pericardium No pericardial effusion. Aorta Normal sized aortic root. IVC Normal IVC dimension with >50% respiratory change of the inferior vena cava. CONCLUSIONS 1. Normal left ventricular size, systolic function and wall thickness, with no regional wall motion abnormalities. Left ventricular ejection fraction is estimated at 70 %. Normal diastolic function. 2. Trace to mild tricuspid valve regurgitation. 3. No significant change when compared to study dated 04/25/2015. Amberly Hale MD (Electronically Signed) Final Date: 18 February 2022 18:03 S
== END 2022-02-16 12:12 | disposition home or self-care (01) ==
LOC: RAD 12:11
PROVIDERS: PCP Nurse Practitioner Family; Visit Provider Specialist
DX: R06.09 Other forms of dyspnea (principal); I07.1 Rheumatic tricuspid insufficiency
CPT/HCPCS: 93306

== ENCOUNTER 2022-03-05 09:32 | Outpatient (CLI) | payer MEDICARE, OTHER, SELFPAY ==
--- NOTE | 2022-03-05 09:56 | XR_ITS ---
WS: [id number] XR chest 2V* [id number] REASON FOR EXAM: COPD, ACUTE EXACERBATION FINDINGS: Chest is unchanged compared to 03/19/2021. Mild tortuosity thoracic aorta with normal heart size. Calcified granulomatous disease bilaterally. No acute pulmonary parenchymal or pleural abnormality. Mild prominence of the interstitium with areas of lucency compatible with central lobar emphysema. Th ere is a more focal area of lucency in the right upper lung medially with linear lung opacity and escrow secretary wding of the bronchi consistent with bullous disease and parenchymal scarring and possible chronic br onchiectasis. No change from the previous exam. Mild degenerative spondylosis in the mid and lower thoracic spine. XR/XR chest 2V* [id number] IMPRESSION: Stable chronic lung changes with no definite acute abnormality.
== END 2022-03-05 09:33 | disposition home or self-care (01) ==
LOC: RAD 09:38
PROVIDERS: PCP Nurse Practitioner Family; Visit Provider Family Medicine
DX: J44.1 Chronic obstructive pulmonary disease with (acute) exacerbation (principal)
CPT/HCPCS: 71046

== ENCOUNTER → 2022-03-16 14:10 | Outpatient (BNVA) | payer MEDICARE, OTHER, SELFPAY | PROVIDERS: PCP Nurse Practitioner Family; Visit Provider Podiatrist Foot & Ankle Surgery | DX: M72.2 Plantar fascial fibromatosis (principal); M21.611 Bunion of right foot; M21.612 Bunion of left foot; R06.02 Shortness of breath; J44.9 Chronic obstructive pulmonary disease, unspecified; G43.711 Chronic migraine without aura, intractable, with status migrainosus; Z87.891 Personal history of nicotine dependence | CPT/HCPCS: 36415; 73630; 80053; 80061; 83735; 83880; 85025; 99204 ==

== ENCOUNTER → 2022-04-22 12:55 | Outpatient (BNVA) | payer MEDICARE, OTHER, SELFPAY | PROVIDERS: PCP Nurse Practitioner Family; Visit Provider Specialist | DX: G43.711 Chronic migraine without aura, intractable, with status migrainosus (principal) | CPT/HCPCS: 64615; J0585 ==

== ENCOUNTER 2022-05-03 06:45 | Outpatient (CLI) | payer MEDICARE, OTHER, SELFPAY ==
--- NOTE | 2022-05-03 | ECG_ITS ---
[facility] Test Date: 2022-05-03 Pat Name: Leah Machuca Department: Room: Gender: Female Director Of Design: Emiriley NamNataliia : 1965 Requested By: Amberly Hale Order Number: [id number] Jose Cruz MD: Amberly Hale M.D. Interpretive Statements NAME OF STUDY: LEXISCAN SESTAMIBI STRESS TEST INDICATION: Chest Pain, Shortness of Breath PROCEDURE: At the baseline, the blood pressure was 113/75 mm Hg with a heart rate of 74 bpm. The electrocardiogram showed sinus rhythm, normal axis. Normal ST and T's. ??? The Lexiscan was infused over a period of 20 seconds. A total of 0.4 milligrams of Lexiscan was infused. The stress phase was continued for a total of 5 minutes. Heart rate at the end of the stress phase was 96 bpm with a blood pressure of 112/64 mm Hg. The EKG at the peak infusion revealed no significant ST-T wave changes. ??? Sestamibi was injected 20 seconds after the Lexiscan infusion. ??? Blood pressure at the end of the recovery phase was 110/68 mm Hg with a heart rate of 95 beats per minute. ??? CONCLUSION: 1. Normal EKG response to LexiScan infusion. 2. No LexiScan induced chest pain or cardiac arrhythmia. 3. Normal blood pressure and heart rate response. 4. Sestamibi/sestamibi perfusion scan pending; see separate report. Electronically Signed On 05-05-2022 15:36:58 CHILDHOOD DEVELOPMENT TEACHER by Amberly Hale M.D. [email or web address]
[2022-05-03 07:03] VITALS: BMI 27.4
--- NOTE | 2022-05-03 07:04 | NMCV_ITS ---
NM flaquita perf SPECT r/s* [id number] , Age: 56 Gender: F : 1965 Exam Date: 05/03/2022 07:43 Ordering Phys: Amberly Hale MD ([email or web address]) Technologist: BRENDA More Exam Location: [facility] Indications: SHORTNESS OF BREATH STRESS TEST Please see separate stress test report in [facility] for full findings IMAGE PROTOCOL Rest/Stress 1 Lexiscan Day Radiopharmaceutical Dose (mCi) Administration Site Administered by Rest: Tc-99m 10.7 IV BRENDA Soliz Sestamibi Stress:Tc-99m 33.0 IV BRENDA Soliz Sestamibi Rest: 03-May-2022 60 Discovery 630 Stress: 03-May-2022 30 Discovery 630 0.4mg Lexiscan. Images obtained in supine and prone position. SPECT RESULTS Technical Quality: Excellent Raw Data Analysis: Sub diaphragmatic attenuation artifact Image Corrections: No attenuation or motion correction applied Summed Stress Score: 2 Summed Rest Score: 3 Summed Difference Score: 0 PERFUSION FINDINGS Small sized perfusion abnormality of mild severity of apical inferior, apical lateral and apical rivas on rest and stress images. FUNCTIONAL RESULTS (calculated via Gated SPECT) Stress Image LV EF (%): 68 Stress EDV (mL):68 TID: 0.62 Stress ESV (mL):22 FUNCTIONAL FINDINGS: The left ventricle is normal in size. Transient Ischemia Dilatation of 0.62. The left ventricular ejection fraction is normal with a value of 68%. There is normal left ventricular wall thickening. IMPRESSIONS 1. Myocardial perfusion imaging is normal. Attenuation artifact noted in apical inferior, apical lateral and apical rivas. 2. Overall left ventricular systolic function is normal without regional wall motion abnormalities, LVEF=68%. 3. EKG portion of the study will be reported separately. 4. No coronary ischemia based on this study. Amberly Hale MD (Electronically Signed) Final Date: 06 May 2022 08:50 S
[2022-05-03] MEDS: regadenoson 0.4 Mg/5 ml Syringe IVP (08:29)
[2022-05-03 08:36] VITALS: BP 110/60; PULSE 95
== END 2022-05-03 06:46 | disposition home or self-care (01) ==
LOC: CDL 06:47
PROVIDERS: Family Provider Internal Medicine; PCP Nurse Practitioner Family; Visit Provider Internal Medicine Cardiovascular Disease
DX: R07.9 Chest pain, unspecified (principal); R06.02 Shortness of breath
CPT/HCPCS: 36415; 78452; 93017; 96374; A9500; J2785

== ENCOUNTER → 2022-05-12 12:52 | Outpatient (BNVA) | payer MEDICARE, OTHER, SELFPAY | PROVIDERS: Family Provider Internal Medicine; PCP Nurse Practitioner Family; Visit Provider Podiatrist Foot & Ankle Surgery | DX: M72.2 Plantar fascial fibromatosis (principal); M21.611 Bunion of right foot; M21.612 Bunion of left foot; L60.3 Nail dystrophy | CPT/HCPCS: 99214 ==

== ENCOUNTER 2022-07-27 13:54 | Outpatient (CLI) | payer MEDICARE, OTHER, SELFPAY ==
[2022-07-27 14:12] VITALS: PULSE 89; RESP 20; O2SAT 95
[2022-07-27] MEDS: albuterol 2.5 mg/3 mL Neb INHALATION (14:12)
[2022-07-27 14:17] VITALS: PULSE 85
== END 2022-07-27 13:55 | disposition home or self-care (01) ==
PROVIDERS: PCP Nurse Practitioner Family; Visit Provider Internal Medicine
DX: J44.9 Chronic obstructive pulmonary disease, unspecified (principal); Z87.891 Personal history of nicotine dependence; Z13.89 Encounter for screening for other disorder
CPT/HCPCS: 94060; 94726; 94729; J7613

== ENCOUNTER → 2022-11-09 14:06 | Outpatient (BNVA) | payer MEDICARE, OTHER, SELFPAY | PROVIDERS: PCP Nurse Practitioner Family; Visit Provider Specialist | DX: G43.711 Chronic migraine without aura, intractable, with status migrainosus (principal); J44.9 Chronic obstructive pulmonary disease, unspecified; M79.7 Fibromyalgia; Z87.891 Personal history of nicotine dependence; M25.511 Pain in right shoulder | CPT/HCPCS: 64615; J0585 ==

== ENCOUNTER 2022-12-23 11:39 | Outpatient (CLI) | payer MEDICARE, OTHER, SELFPAY ==
--- NOTE | 2022-12-23 11:50 | MM_ITS ---
WS: [id number] BILATERAL 3D TOMOSYNTHESIS DIGITAL DIAGNOSTIC MAMMOGRAPHY WITH CAD CLINICAL INFORMATION: RT AXILLARY MASS HISTORY: Palpable lump RIGHT axilla COMPARISON: 2020 TECHNIQUE: Bilateral CC, MLO, and ML views. FINDINGS: Scattered fibroglandular densities bilaterally. Palpable marker axilla. A few partially visualized ly mph nodes with normal fatty leno. No parenchymal densities deep to the palpable marker. Normal parenc hymal fat in this area. Ultrasound is pending. Incidental scattered punctate calcifications RIGHT hima ast. LEFT breast is unremarkable and unchanged. ULTRASOUND BREAST RIGHT TECHNIQUE: Ultrasound right breast focused area of concern. CLINICAL INFORMATION: RT AXILLARY MASS COMPARISON: None. FINDINGS: Ultrasound RIGHT breast area of concern RIGHT axilla. A few normal-appearing axillary lymph nodes wit h normal fatty hilum. No suspicious cystic or solid lesions. No abnormal underlying abnormalities. IMPRESSION: MM/[place] [id number] BI-RADS: 2-Benign FOLLOW UP: 1 Year Follow-up Recommend return to annual screening mammography.
== END 2022-12-23 11:40 | disposition home or self-care (01) ==
LOC: RAD 11:41
PROVIDERS: PCP Nurse Practitioner Family; Visit Provider Nurse Practitioner Family
DX: N63.31 Unspecified lump in axillary tail of the right breast (principal)
CPT/HCPCS: 76642; 77062; G0279

== ENCOUNTER → 2023-03-24 14:02 | Outpatient (BNVA) | payer MEDICARE, OTHER, SELFPAY | PROVIDERS: PCP Nurse Practitioner Family; Visit Provider Specialist | DX: G43.711 Chronic migraine without aura, intractable, with status migrainosus (principal) | CPT/HCPCS: 64615; J0585 ==

== ENCOUNTER → 2023-06-23 08:48 | Outpatient (BNVA) | payer MEDICARE, OTHER, SELFPAY | PROVIDERS: PCP Nurse Practitioner Family; Visit Provider Specialist | DX: G43.711 Chronic migraine without aura, intractable, with status migrainosus (principal) | CPT/HCPCS: 64615; J0585 ==

== ENCOUNTER → 2023-09-02 09:46 | Outpatient (BNVA) | payer MEDICARE, OTHER, SELFPAY | PROVIDERS: PCP Nurse Practitioner Family; Visit Provider Physician Assistant | DX: M79.641 Pain in right hand (principal); M79.642 Pain in left hand; M65.341 Trigger finger, right ring finger; M72.0 Palmar fascial fibromatosis [Dupuytren] | CPT/HCPCS: 20600; 73130; 99203; J3301; J3490 ==

== ENCOUNTER → 2023-09-22 08:39 | Outpatient (BNVA) | payer MEDICARE, OTHER, SELFPAY | PROVIDERS: Visit Provider Specialist | DX: G43.711 Chronic migraine without aura, intractable, with status migrainosus (principal); R55 Syncope and collapse; E04.1 Nontoxic single thyroid nodule; M79.7 Fibromyalgia | CPT/HCPCS: 36415; 64615; 80053; 82533; 84439; 84443; 99214; J0585 ==

== ENCOUNTER 2023-09-23 06:00 | Outpatient (RCR) | payer MEDICARE, OTHER, SELFPAY | END 2023-10-02 23:59 | disposition home or self-care (01) | LOC: SOT 06:00 | PROVIDERS: Visit Provider Physician Assistant | DX: M72.0 Palmar fascial fibromatosis [Dupuytren] (principal) | CPT/HCPCS: 97110; 97165 ==

== ENCOUNTER 2023-10-03 06:00 | Outpatient (RCR) | payer MEDICARE, OTHER, SELFPAY | END 2023-11-02 23:59 | disposition home or self-care (01) | LOC: SOT 06:00 | PROVIDERS: Visit Provider Physician Assistant | DX: M72.0 Palmar fascial fibromatosis [Dupuytren] (principal) | CPT/HCPCS: 97022; 97110; 97140 ==

== ENCOUNTER 2023-11-24 12:53 | Outpatient (CLI) | payer MEDICARE, OTHER, SELFPAY ==
--- NOTE | 2023-11-24 13:15 | US_ITS ---
WS: [id number] THYROID ULTRASOUND HISTORY: thyroid nodules COMPARISON: 01/18/2022 Right lobe: 1.9 cm x 2.4 cm x 4.9 cm (w x ap x l). Volume: 10.6 cm3. Mildly enlarged heterogeneous gland. There are several small cystic nodules within the gland. With th e imaging submitted cannot determine if these have increased in size but do not appear greater than 1 .5 cm. Left lobe: 1.7 cm x 2.6 cm x 5.3 cm (w x ap x l). Volume: 11.3 cm3. Mildly enlarged thyroid. There is a complex cystic mass with irregular borders in the mid gland measu ring 1.1 x 1.1 x 2.6 cm. Peripheral vascularity. This nodule has been present on prior studies and do es have some concerning features but is not increasing in size. Isthmus: 0.5 cm. US/US thyroid [id number] IMPRESSION: 1. TI-RADS 4; irregular necrotic cystic mass in the LEFT thyroid. Although thi s mass is not increasing in size there are several features that are concerning for malignancy. Consider fine-needle aspiration under ultrasound guidance. 2. Additional nodules RIGHT thyroid are unchanged.
== END 2023-11-24 12:54 | disposition home or self-care (01) ==
LOC: RAD 12:54
PROVIDERS: Visit Provider Internal Medicine
DX: E04.1 Nontoxic single thyroid nodule (principal)
CPT/HCPCS: 76536

== ENCOUNTER → 2023-12-01 09:18 | Outpatient (BNVA) | payer MEDICARE, OTHER, SELFPAY | PROVIDERS: Visit Provider Specialist | DX: R55 Syncope and collapse (principal) | CPT/HCPCS: 95819 ==

== ENCOUNTER → 2023-12-06 14:45 | Outpatient (BNVA) | payer MEDICARE, OTHER, SELFPAY | PROVIDERS: PCP Nurse Practitioner Family; Visit Provider Student in an Organized Health Care Education/Training Program | DX: M65.341 Trigger finger, right ring finger (principal); M72.0 Palmar fascial fibromatosis [Dupuytren] | CPT/HCPCS: 99214 ==

== ENCOUNTER 2023-12-14 12:58 | Outpatient (CLI) | payer MEDICARE, OTHER, SELFPAY ==
--- NOTE | 2023-12-14 13:15 | US_ITS ---
WS: [id number] ULTRASOUND-GUIDED LEFT THYROID NODULE FNA HISTORY: E04.1 - Nontoxic single thyroid nodule Procedure, risks, and complications were explained to the patient. Consent has been obtained. Comparison: 11/24/2023 The skin is cleansed with ChloraPrep and anesthetized with 1% buffered lidocaine. FNA performed with 25 gauge needles. imaging technologist is present to fix slides. Study limited by position of the nodule and mobility during patient breathing. US/US biopsy/FNA thyroid [id number] IMPRESSION: Uncomplicated FNA of a LEFT thyroid nodule. Final pathology results pending.
== END 2023-12-14 12:59 | disposition home or self-care (01) ==
LOC: RAD 12:59
PROVIDERS: PCP Nurse Practitioner Family; Visit Provider Internal Medicine
DX: E04.1 Nontoxic single thyroid nodule (principal)
CPT/HCPCS: 10005; 88173

== ENCOUNTER 2023-12-22 13:24 | Outpatient (CLI) | payer MEDICARE, OTHER, SELFPAY ==
[2023-12-22 14:36] LABS: Thyroid Stimulating Hormone 0.46 uIU/mL (0.27-4.20)
== END 2023-12-22 13:25 | disposition home or self-care (01) ==
LOC: LAB 13:26
PROVIDERS: PCP Nurse Practitioner Family; Visit Provider Internal Medicine
DX: E03.9 Hypothyroidism, unspecified (principal)
CPT/HCPCS: 36415; 84439; 84443

== ENCOUNTER 2024-01-05 07:49 | Day surgery (SDC) | payer MEDICARE, OTHER, SELFPAY ==
[2024-01-05 08:15] VITALS: BP 118/84; PULSE 85; RESP 18; TEMP 36.7; O2SAT 98
[2024-01-05 08:24] VITALS: BMI 29.1
--- NOTE | 2024-01-05 08:34 | P.ANESASSM_ITS ---
Pre-Anesthetic Assessment Height/Weight: Height 5 ft 5 in Weight 175 lb Temp Pulse Resp BP Pulse Ox O2 Del Method O2 Flow Rate 98.1 F 85 18 118/84 98 Nasal Cannula 2 01/05/24 08:15 01/05/24 08:15 01/05/24 08:15 01/05/24 08:15 01/05/24 08:15 01/05/24 08:25 01/05/24 08:25 Preop Diagnosis: Carpal tunnel Operation Date: 01/05/24 09:40 Proposed Procedures p ring finger trigger release [id number](Right) - Fer Wilkerson DO s Dupuytren's cord excision Dupuytren's Cord Release ring finger(Right) - Fer Wilkerson DO Was Beta Jessika taken within 24 hours: N/A Was Clonidine taken within 24 hours: N/A Last intake: Intake Last Liquid Date 01/04/24 Last Liquid Time 20:30 Last Solid Date 01/04/24 Last Solid Time 20:30 Anesthetic Plan Other: No prior issues with anesthesia NPO since yesterday evening History of COPD controlled with inhalers Restless leg syndrome Fibromyalgia PTSD Migraines ADHD on methylphenidate Medications/Allergies Home Medications Medication Instructions Recorded Confirmed Last Taken Type levalbuterol tartrate 45 2 inh inhalation Q6H PRN shortness 04/19/19 01/04/24 01/04/24 History mcg/actuation aerosol inhaler of breath (Xopenex HFA) montelukast 10 mg tablet 10 mg PO QDAY 04/19/19 01/04/24 01/04/24 History (Singulair) roflumilast 250 mcg tablet 250 mcg PO DAILY 08/27/20 01/04/24 01/04/24 History (Daliresp) albuterol sulfate 0.63 mg/3 mL 0.63 mg inhalation Q6H PRN 07/06/22 01/04/24 01/04/24 History solution for nebulization shortness of breath or wheezing bupropion HCl 150 mg 24 hr tablet, 150 mg PO QAM #30 tabs 07/29/23 01/04/24 01/04/24 Rx extended release (Wellbutrin XL) bupropion HCl 300 mg 24 hr tablet, 300 mg PO QAM #30 tabs 07/29/23 01/04/24 01/04/24 Rx extended release (Wellbutrin XL) methylphenidate HCl 20 mg tablet 20 mg PO TID 30 days #90 tabs 10/11/23 01/04/24 01/04/24 Rx sertraline 100 mg tablet (Zoloft) 100 mg PO DAILY 10/31/23 01/04/24 01/04/24 History alprazolam 0.5 mg tablet 0.5 mg PO DAILY PRN anxiety #30 12/15/23 01/04/24 01/04/24 Rx tabs alprazolam 2 mg tablet 2 mg PO .qhs #30 tabs 12/15/23 01/04/24 01/04/24 Rx methylphenidate HCl 20 mg tablet 20 mg PO TID 30 days #90 tabs 12/15/23 01/04/24 01/04/24 Rx methylphenidate HCl 20 mg tablet 20 mg PO TID 30 days #90 tabs 12/15/23 01/04/24 01/04/24 Rx (Ritalin) pramipexole 0.25 mg tablet 0.25 mg PO DAILY 01/04/24 01/04/24 01/04/24 History sertraline 100 mg tablet (Zoloft) 100 mg PO DAILY 01/04/24 01/04/24 01/04/24 History sumatriptan succinate 100 mg tablet 100 mg PO PRN PRN Pain, Severe 01/04/24 01/04/24 Unknown History Allergies Allergy/AdvReac Type Severity Reaction Status Date / Time venlafaxine [From Effexor] Allergy Unknown Unknown Verified 01/04/24 13:08 duloxetine [From Cymbalta] Allergy seratonin Verified 01/04/24 13:08 reaction sulfamethoxazole Allergy Unknown Verified 01/04/24 13:08 [From Bactrim] trimethoprim [From Bactrim] Allergy Unknown Verified 01/04/24 13:08 [facility] Anesthesia Medical History Syncope IBS (irritable bowel syndrome) History of sepsis History of pulmonary embolism Psychiatric care Panic disorder [episodic paroxysmal anxiety] Post-traumatic stress disorder, chronic Surgical History S/P cholecystectomy S/P partial hysterectomy Family History Mother Myocardial infarction Stroke Lung disease Father Myocardial infarction Lung disease Hypertension Hyperlipidemia Sister Myocardial infarction Brother Myocardial infarction Hyperlipidemia Postsurgical cardiac pacemaker in situ Family/Other Diabetes Social History Smoking and tobacco/nicotine status: never used tobacco/nicotine Quit status (tobacco/nicotine): has quit using Year quit tobacco: 04/01/2014 Second hand smoke exposure: No Alcohol intake: never Substance/Drug Use: never Data Anesthesia Cardiac Studies: Echocardiogram 02/16/22 Sestamibi Stress Test (Cardiology) 05/03
--- NOTE | 2024-01-05 08:53 | ANES.PREANE2 ---
Pre-Anesthetic Assessment Height/Weight: Height 5 ft 5 in Weight 175 lb Temp Pulse Resp BP Pulse Ox O2 Del Method O2 Flow Rate 98.1 F 85 18 118/84 98 Nasal Cannula 2 01/05/24 08:15 01/05/24 08:15 01/05/24 08:15 01/05/24 08:15 01/05/24 08:15 01/05/24 08:25 01/05/24 08:25 Preop Diagnosis: Dupuytren's contracture Operation Date: 01/05/24 09:40 Proposed Procedures p ring finger trigger release 14026(Right) - Fer Wilkerson DO s Dupuytren's cord excision Dupuytren's Cord Release ring finger(Right) - Fer Wilkerson DO Was Beta Jessika taken within 24 hours: N/A Was Clonidine taken within 24 hours: N/A Last intake: Intake Last Liquid Date 01/04/24 Last Liquid Time 20:30 Last Solid Date 01/04/24 Last Solid Time 20:30 Social No alcohol and No tobacco Exam alert, oriented x 3 and regular rate & rhythm Decreased breath sounds bilaterally Airway Submandibular: within normal limits Cervical ROM: within normal limits Mallampati: Class III Dentition: false Anesthetic Plan ASA status: 3 Anesthesia: Choice Other: No prior issues with anesthesia NPO since yesterday evening Patient recently had bilateral eye surgery for eye droop with stitches present in both eyelids. History of COPD on 2 L O2 at baseline. Takes multiple inhalers Restless leg syndrome Fibromyalgia PTSD Migraines ADHD on methylphenidate Normal stress test 2022 with echo in 2021 showing EF 70% Medications/Allergies Home Medications Medication Instructions Recorded Confirmed Last Taken Type levalbuterol tartrate 45 2 inh inhalation Q6H PRN shortness 04/19/19 01/04/24 01/04/24 History mcg/actuation aerosol inhaler of breath (Xopenex HFA) montelukast 10 mg tablet 10 mg PO QDAY 04/19/19 01/04/24 01/04/24 History (Singulair) roflumilast 250 mcg tablet 250 mcg PO DAILY 08/27/20 01/04/24 01/04/24 History (Daliresp) albuterol sulfate 0.63 mg/3 mL 0.63 mg inhalation Q6H PRN 0401/04/24 01/04/24 History solution for nebulization shortness of breath or wheezing bupropion HCl 150 mg 24 hr tablet, 150 mg PO QAM #30 tabs 07/29/23 01/04/24 01/04/24 Rx extended release (Wellbutrin XL) bupropion HCl 300 mg 24 hr tablet, 300 mg PO QAM #30 tabs 07/29/23 01/04/24 01/04/24 Rx extended release (Wellbutrin XL) methylphenidate HCl 20 mg tablet 20 mg PO TID 30 days #90 tabs 10/11/23 01/04/24 01/04/24 Rx sertraline 100 mg tablet (Zoloft) 100 mg PO DAILY 10/31/23 01/04/24 01/04/24 History alprazolam 0.5 mg tablet 0.5 mg PO DAILY PRN anxiety #30 12/15/23 01/04/24 01/04/24 Rx tabs alprazolam 2 mg tablet 2 mg PO .qhs #30 tabs 12/15/23 01/04/24 01/04/24 Rx methylphenidate HCl 20 mg tablet 20 mg PO TID 30 days #90 tabs 12/15/23 01/04/24 01/04/24 Rx methylphenidate HCl 20 mg tablet 20 mg PO TID 30 days #90 tabs 12/15/23 01/04/24 01/04/24 Rx (Ritalin) pramipexole 0.25 mg tablet 0.25 mg PO DAILY 01/04/24 01/04/24 01/04/24 History sertraline 100 mg tablet (Zoloft) 100 mg PO DAILY 01/04/24 01/04/24 01/04/24 History sumatriptan succinate 100 mg tablet 100 mg PO PRN PRN Pain, Severe 01/04/24 01/04/24 Unknown History Allergies Allergy/AdvReac Type Severity Reaction Status Date / Time venlafaxine [From Effexor] Allergy Unknown Unknown Verified 01/04/24 13:08 duloxetine [From Cymbalta] Allergy seratonin Verified 01/04/24 13:08 reaction sulfamethoxazole Allergy Unknown Verified 01/04/24 13:08 [From Bactrim] trimethoprim [From Bactrim] Allergy Unknown Verified 01/04/24 13:08 PFSH Anesthesia Medical History Syncope IBS (irritable bowel syndrome) History of sepsis History of pulmonary embolism Psychiatric care Panic disorder [episodic paroxysmal anxiety] Post-traumatic stress disorder, chronic Surgical History S/P cholecystectomy S/P partial hysterectomy Family History Mother Myocardial infarction Stroke Lung disease Father Myocardial infarction Lung disease Hypertension Hyperlipidemia Sister Myocardial infarction Brother Myocardial infarction Hyperlipidemia Postsurgical cardiac pacemaker in situ Family/Other Diabetes Social History Smoking and tobacco/nicotine status: never used tobacco/nicotine Quit status (tobacco/nicotine): has quit using Year quit tobacco: 04/01/2014 Second hand smoke exposure: No Alcohol intake: never Substance/Drug Use: never Data Anesthesia Cardiac Studies: Echocardiogram 02/16/22 Sestamibi Stress Test (Cardiology) 05/03/22
[2024-01-05] MEDS: acetaminophen 1,000 MG/100 ML PIGGYBACK 400 MG IV (08:58)
[2024-01-05] MEDS: ketorolac 30 mg/mL INJ IVP (09:01)
--- NOTE | 2024-01-05 09:01 | W.PM.OPSUD ---
Surgery/Procedure H&P Update DATE OF PROCEDURE: January 05, 2024 DATE H&P PERFORMED: 12/06/23 H&P UPDATE INFORMATION: I have reviewed H&P completed within last 30 days, I have examined patient prior to procedure and No changes to prior documentation PREOP DIAGNOSIS: Right ring finger trigger, right ring finger Dupuytren's contracture PRIMARY INDICATION FOR PROCEDURE: Right ring finger trigger, right ring finger Dupuytren's contracture PLANNED PROCEDURE: Operation Date: 01/05/24 09:40 Proposed Procedures p ring finger trigger release [id number](Right) - DO shyanne Huynh Dupuytren's cord excision Dupuytren's Cord Release ring finger(Right) - Fer Wilekrson DO
[2024-01-05] MEDS: sodium chloride 0.9% 1,000 ML 30 ML IV (09:21)
[2024-01-05] MEDS: ceFAZolin 2,000 MG in sodium chloride 0.9% (plus) 50 ML 100 MG IV (09:32)
[2024-01-05] MEDS: ROPivacaine 0.5% SDV 30 mL 25 MG INJECTION (09:54)
[2024-01-05] MEDS: lidocaine 1% 10 ML INJ 5 ML XX (09:54)
[2024-01-05 10:18] VITALS: BP 86/60; PULSE 64; RESP 18; TEMP 36.3; O2SAT 100
[2024-01-05 10:23] VITALS: BP 99/64; PULSE 59; RESP 17; O2SAT 100
[2024-01-05 10:28] VITALS: BP 98/76; PULSE 66; RESP 17; O2SAT 99
[2024-01-05 10:33] VITALS: BP 95/76; PULSE 65; RESP 17; TEMP 36.4; O2SAT 100
--- NOTE | 2024-01-05 10:37 | W.PM.BPON ---
Date of Procedure: 01/05/2024 Surgeon: Fer Wilkerson DO [employer] Operations Manager(s): None Procedure(s) performed: Right ring finger trigger release Right ring finger Dupuytren's cord release with partial palmar fasciectomy Findings of the procedure(s): Patient was found to have a thickened Dupuytren's cord over the MP joint directly over the ring finger trigger underwent partial fascial excision and release of the Dupuytren cord as well as a right ring finger trigger release. Patient tolerated procedure well without issues or complications Estimated blood loss: 3 mL Specimen(s) removed: None Post-operative diagnosis: Right ring finger trigger, right ring finger MP Dupuytren's cord contracture
--- NOTE | 2024-01-05 10:38 | PM.OP ---
Operative Report Date of procedure: January 05, 2024 Surgeon: Fer Wilkerson DO Procedure: Preoperative diagnosis: Right ring finger trigger Right ring finger Dupuytren's Post-op diagnosis: Same Procedure done: Right ring finger trigger release Right ring finger Dupuytren's cord release with partial palmar fasciectomy Surgeon: Fer Wilkerson DO Estimated blood loss: 3cc Tourniquet time 17mins Complications: None Condition: stable Disposition: same day Brief History: Patient's been seen and worked up in the outpatient setting and findings consistent with preoperative diagnosis of right Ring finger?trigger and palpable Dupuytren's cord.? Pt is failed conservative treatment.? Continues to have mechanical locking and catching.? Severe pain as well.? We talked about treatment options nonoperative versus operative intervention.? ?Patient understands the risk benefits complication alternatives of surgical nonsurgical treatment options.? Understanding pt risks with surgery pt elects proceed with surgical intervention.? Consent obtained in PACU.? Here today to proceed with surgical intervention.? All questions answered. Procedure: Patient was seen and evaluated in the preoperative holding area.? Consent was reviewed and signed with patient.? Seen evaluated by Anesthesia Department.? Once cleared for surgery was brought back to the operative suite.? Placed in supine position on the OR table all bony prominences well-padded patient properly secured to the bed.? Patient's right arm was then placed to the armboard.? A nonsterile tourniquet applied to the right upper arm.? Patient's right upper extremity was then prepped and draped in standard orthopedic fashion.? Final timeout performed.? Patient received appropriate preoperative antibiotics. Esmarch tourniquet was used exsanguinate the right upper extremity tourniquet insufflated to 250 mmHg. Under sterile aseptic technique local digital block was performed to the right Ring finger.? Once appropriately anesthetized a standard oblique incision was made centering over the A1 ck following patient's flexor crease.? Sharp scalpel incision was made only through skin and then switched to Littler dissection scissors and spread longitudinally directly over the flexor tendon sheath.? Immediately encountered patient's right ring finger Dupuytren cord. There is no significant contracture appreciated however there was noticeable adhesions to the skin. I utilized Littler dissection scissors and dissected this out proximally aspect of the incision and dissected out and excised the Dupuytren's cord I protected the neurovascular bundles while this was being performed as well as confirm that each cord just went to the undersurfaces of the skin and fascia. Deep was the flexor tendon. I then subsequently excised this cord and completed a right ring finger Dupuytren's partial palmar cord excision. I then subsequently direct visualization now over the A1 ck of the right ring finger. I then mobilized both radially and ulnarly and Kasdan retractors were used and placed by my fitter's assistant to protect neurovascular bundle.? Next I visualized the A1 ck and this was incised with a scalpel.? I then switched to dissection scissors and released the A1 ck both proximally as well as distally to its entirety.? Significant tendon sheath fluid was noted consistent with inflammation.? Mild fraying of the flexor tendons noted but no tear.? At this point I utilized a rag nail and pulled the tendons FDS and FDP out of the incision and no?triggering was noted.? I then had anesthesia wake up the patient and patient was able to actively flex and extend with no?triggering.? This point thorough irrigation was performed.? Tourniquet deflated hemostasis satisfactory with bipolar.? I then subsequently closed the incision with interrupted nylon suture.? Xeroform 4 x 4's, Kerlix and an Tang wrap was applied for a bulky soft dressing.? Patient was then subsequently awakened from anesthesia and taken to PACU in stable condition tolerated procedure without issues. Disposition: Patient taken back in stable condition recovering well.? Patient will receive appropriate discharge instruction as well as pain medication postoperatively.? Patient to follow-up with me in the office in 2 weeks for repeat evaluation and incision check.? Patient understands that any questions or concerns and contact the office.? All questions answered.
--- NOTE | 2024-01-05 11:22 | ANE.PACU2 ---
Inpatient post-anesthesia follow up: Airway intact: Yes Vital signs: Temperature 97.6 F Pulse Rate 65 Respiratory Rate 17 Blood Pressure 95/76 Pulse Oximetry 100 Oxygen Delivery Me thod Nasal Cannula Oxygen Flow Rate 2 Fraction of Inspir ed Oxygen Hydration adequate: Yes Nausea and vomiting: No Pain level: 1 Mental status: Baseline
== END 2024-01-05 11:22 | disposition home or self-care (01) ==
PROVIDERS: PCP Nurse Practitioner Family; Visit Provider Student in an Organized Health Care Education/Training Program
PROC: (CPT 26055; principal; 2024-01-05 09:40)
PROC: (CPT 26123; 2024-01-05 09:40)
DX: M72.0 Palmar fascial fibromatosis [Dupuytren] (principal); M65.341 Trigger finger, right ring finger; J44.9 Chronic obstructive pulmonary disease, unspecified; Z99.81 Dependence on supplemental oxygen; M79.7 Fibromyalgia; F90.9 Attention-deficit hyperactivity disorder, unspecified type
CPT/HCPCS: 26123; J0131; J0690; J1885; J2704; J2795; J7030

== ENCOUNTER → 2024-01-13 08:17 | Outpatient (BNVA) | payer MEDICARE, OTHER, SELFPAY | PROVIDERS: PCP Nurse Practitioner Family; Visit Provider Internal Medicine | DX: E04.1 Nontoxic single thyroid nodule (principal); E55.9 Vitamin D deficiency, unspecified; R63.5 Abnormal weight gain; R03.0 Elevated blood-pressure reading, without diagnosis of hypertension; Z68.29 Body mass index [BMI] 29.0-29.9, adult; Z79.84 Long term (current) use of oral hypoglycemic drugs | CPT/HCPCS: 99214 ==

== ENCOUNTER 2024-01-19 09:43 | Outpatient (CLI) | payer MEDICARE, OTHER, SELFPAY | END 2024-01-19 09:44 | disposition home or self-care (01) | LOC: SOT 09:45 | PROVIDERS: PCP Nurse Practitioner Family; Visit Provider Student in an Organized Health Care Education/Training Program | DX: Z46.89 Encounter for fitting and adjustment of other specified devices (principal); M65.341 Trigger finger, right ring finger; M72.0 Palmar fascial fibromatosis [Dupuytren] | CPT/HCPCS: 97760; 99024; L3906 ==

== ENCOUNTER → 2024-01-20 10:36 | Outpatient (BNVA) | payer MEDICARE, OTHER, SELFPAY | PROVIDERS: PCP Nurse Practitioner Family; Visit Provider Specialist | DX: G43.711 Chronic migraine without aura, intractable, with status migrainosus (principal); R55 Syncope and collapse; E04.1 Nontoxic single thyroid nodule | CPT/HCPCS: 64615; 99213; J0585 ==

== ENCOUNTER 2024-04-03 11:55 | Outpatient (CLI) | payer MEDICARE, OTHER, SELFPAY ==
--- NOTE | 2024-04-03 12:09 | XR_ITS ---
WS: [id number] Chest 2 views, 04/03/2024 Clinical Data: COUGH Comparison: Two-view chest, 01/03/2022 Findings: No nodules, masses or effusions are seen. The heart is normal. The pulmonary vascularity is not increased. No pneumonia or pneumothorax is seen. The diaphragms are flattened. The aortic arch i s tortuous. XR/XR chest 2V* [id number] Impression: Atherosclerosis and hyperinflation.
== END 2024-04-03 11:56 | disposition home or self-care (01) ==
LOC: RAD 12:04
PROVIDERS: PCP Nurse Practitioner Family; Visit Provider Nurse Practitioner Family
DX: R05.8 Other specified cough (principal); J84.9 Interstitial pulmonary disease, unspecified; Q25.46 Tortuous aortic arch
CPT/HCPCS: 71046

== ENCOUNTER → 2024-04-20 10:23 | Outpatient (BNVA) | payer MEDICARE, OTHER, SELFPAY | PROVIDERS: PCP Nurse Practitioner Family; Visit Provider Specialist | DX: G43.711 Chronic migraine without aura, intractable, with status migrainosus (principal); R55 Syncope and collapse; E04.1 Nontoxic single thyroid nodule | CPT/HCPCS: 64615; 99213; J0585 ==

== ENCOUNTER 2024-05-03 15:10 | Outpatient (CLI) | payer MEDICARE, OTHER, SELFPAY ==
--- NOTE | 2024-05-03 15:17 | CT_ITS ---
WS: [id number] LDCT LUNG CANCER SCREENING HISTORY: HX OF TOBACCO USE TECHNIQUE: Axial imaging performed from the apices to 1 cm below the costophrenic angles. Coronal and sagittal reformats are submitted with axial MIP series. All CT scans at [facility] use at least one of these dose optimization techniques: automated exposure control; mA and/or kV adjustment per patient size (includes targeted exams where dose is matched to clinical indication); or iterativ e reconstruction. DLP: 76.42 mGy.cm DIvol: Mean CTDIvol: 1.70 (mGy) COMPARISON: 05/04/2018 Diagnostic quality: Satisfactory Lungs: Mild chronic emphysema and hyperexpansion. Mild atelectasis along the RIGHT major fissure. No pulmonary mass or nodule. No endobronchial lesions. Heart: Normal size heart with no pericardial effusion.. Other findings: LEFT hilar calcified lymph nodes. No adenopathy. Mild atherosclerosis aorta. Normal s ize pulmonary artery. No adrenal mass. Prior cholecystectomy. CT/CT lung screening [id number] IMPRESSION: LUNG-RADS: 1-Negative FOLLOW UP: 12 Month: Continue annual screening with LDCT OTHER FINDINGS (S MODIFIER): None.
== END 2024-05-03 15:11 | disposition home or self-care (01) ==
LOC: RAD 15:12
PROVIDERS: PCP Nurse Practitioner Family; Visit Provider Internal Medicine
DX: Z12.2 Encounter for screening for malignant neoplasm of respiratory organs (principal); Z87.891 Personal history of nicotine dependence; J43.8 Other emphysema; R91.8 Other nonspecific abnormal finding of lung field; J98.11 Atelectasis; I89.8 Other specified noninfective disorders of lymphatic vessels and lymph nodes; I70.0 Atherosclerosis of aorta; Z90.49 Acquired absence of other specified parts of digestive tract
CPT/HCPCS: 71271

== ENCOUNTER → 2024-05-29 09:01 | Outpatient (BNVA) | payer MEDICARE, OTHER, SELFPAY | PROVIDERS: PCP Nurse Practitioner Family; Visit Provider Internal Medicine | DX: E04.1 Nontoxic single thyroid nodule (principal); E55.9 Vitamin D deficiency, unspecified; R63.5 Abnormal weight gain; R03.0 Elevated blood-pressure reading, without diagnosis of hypertension | CPT/HCPCS: 99214 ==

== ENCOUNTER → 2024-07-27 09:18 | Outpatient (BNVA) | payer MEDICARE, OTHER, SELFPAY | PROVIDERS: PCP Nurse Practitioner Family; Visit Provider Specialist | DX: G43.711 Chronic migraine without aura, intractable, with status migrainosus (principal); D64.9 Anemia, unspecified; R55 Syncope and collapse; E04.1 Nontoxic single thyroid nodule | CPT/HCPCS: 64615; 80053; 85025; 85610; 99212; J0585; J9999 ==

== ENCOUNTER 2024-10-25 11:34 | Outpatient (CLI) | payer MEDICARE, SELFPAY ==
--- NOTE | 2024-10-25 11:45 | US_ITS ---
WS: [id number] THYROID ULTRASOUND HISTORY: Thyroid Nodule COMPARISON: 11/24/2023 Right lobe: 1.5 cm x 1.7 cm x 4.3 cm (w x ap x l). Volume: 5.4 cm3. Normal sized gland with heterogeneity. There are a few small spongiform nodules within the gland. Largest nodule in the superior pole 1.0 x 0.9 x 1.1 cm. No echogenic foci. Left lobe: 1.2 cm x 1.8 cm x 4.2 cm (w x ap x l). Volume: 4.2 cm3. Complex cystic nodule in the lower pole measures 2.4 x 1.5 x 1.9 cm. This is a predominantly cystic nodule with spongiform characteristics. There is mild peripheral increased vascularity. This posterior nodule previously biopsied. There is more cystic component as compared to the prior study. No increased vascularity. Isthmus: 0.4 cm. US/US thyroid [id number] IMPRESSION: TI-RADS 2; bilateral thyroid nodules. These nodules are predominantly cystic an d have spongiform characteristics. The largest nodule in the LEFT thyroid was p reviously biopsied.
== END 2024-10-25 11:35 | disposition home or self-care (01) ==
LOC: RAD 11:38
PROVIDERS: PCP Nurse Practitioner Family; Visit Provider Internal Medicine
DX: E04.2 Nontoxic multinodular goiter (principal)
CPT/HCPCS: 76536

== ENCOUNTER → 2024-11-27 09:00 | Outpatient (BNVA) | payer MEDICARE, OTHER, SELFPAY | PROVIDERS: PCP Nurse Practitioner Family; Visit Provider Internal Medicine | DX: E04.1 Nontoxic single thyroid nodule (principal); E55.9 Vitamin D deficiency, unspecified; R63.5 Abnormal weight gain; M79.7 Fibromyalgia; E11.9 Type 2 diabetes mellitus without complications | CPT/HCPCS: 99214 ==

== ENCOUNTER → 2024-12-06 14:00 | Outpatient (BNVA) | payer MEDICARE, SELFPAY | PROVIDERS: PCP Nurse Practitioner Family; Visit Provider Specialist | DX: G43.711 Chronic migraine without aura, intractable, with status migrainosus (principal) | CPT/HCPCS: 64615; J0585; J9999 ==

== ENCOUNTER 2025-01-14 14:20 | Outpatient (CLI) | payer MEDICARE, OTHER, SELFPAY ==
--- NOTE | 2025-01-14 | MM_ITS ---
WS: [id number] BILATERAL 3D TOMOSYNTHESIS DIGITAL SCREENING MAMMOGRAPHY WITH CAD CLINICAL INFORMATION: ANNUAL SCREENING HISTORY: Screening mammogram. No current complaints. COMPARISON: 2022 TECHNIQUE: Bilateral CC and MLO views. FINDINGS: The breasts are composed of heterogeneous fibroglandular density tissue, which can limit the detection of small underlying mass lesions. No suspicious mass, asymmetry, calcifications, or architectural distortion. No evidence of malignancy. Lucent centered calcification LEFT breast. Incidental punctate calcifications RIGHT breast MM/MM [facility] tomosynthesis [id number] IMPRESSION: DENSITY: The breasts are heterogeneously dense, which may obscure small masses. BI-RADS: 2 - Benign FOLLOW UP: 1 Year Follow-up Recommend return to annual screening mammography.
== END 2025-01-14 14:21 | disposition home or self-care (01) ==
LOC: RAD 14:21
PROVIDERS: PCP Nurse Practitioner Family; Visit Provider Nurse Practitioner Family
DX: Z12.31 Encounter for screening mammogram for malignant neoplasm of breast (principal); R92.333 Mammographic heterogeneous density, bilateral breasts; R92.1 Mammographic calcification found on diagnostic imaging of breast
CPT/HCPCS: 77063; 77067

== ENCOUNTER 2025-02-19 12:41 | Outpatient (CLI) | payer MEDICARE, OTHER, SELFPAY ==
[2025-02-19 13:05] VITALS: PULSE 107; RESP 18; O2SAT 98
== END 2025-02-19 12:42 | disposition home or self-care (01) ==
LOC: RT 12:43
PROVIDERS: PCP Nurse Practitioner Family; Visit Provider Internal Medicine
DX: J42 Unspecified chronic bronchitis (principal); J96.10 Chronic respiratory failure, unspecified whether with hypoxia or hypercapnia
CPT/HCPCS: 94060; 94726; 94729; J7613

== ENCOUNTER → 2025-02-25 13:37 | Outpatient (BNVA) | payer MEDICARE, OTHER, SELFPAY | PROVIDERS: PCP Nurse Practitioner Family; Referring Provider Nurse Practitioner Family; Visit Provider Internal Medicine | DX: J44.89 Other specified chronic obstructive pulmonary disease (principal); J96.90 Respiratory failure, unspecified, unspecified whether with hypoxia or hypercapnia; Z99.81 Dependence on supplemental oxygen; J98.11 Atelectasis; Z87.891 Personal history of nicotine dependence; J44.9 Chronic obstructive pulmonary disease, unspecified; T78.40XA Allergy, unspecified, initial encounter; X58.XXXA Exposure to other specified factors, initial encounter | CPT/HCPCS: 99204; Q3014 ==

== ENCOUNTER 2025-03-06 13:27 | Outpatient (CLI) | payer MEDICARE, OTHER, SELFPAY ==
--- NOTE | 2025-03-06 13:33 | XR_ITS ---
WS: [id number] Exam: XR chest 2V* [id number] Date/Time of Exam: 03/06/2025 1:37 PM Reason For Exam: COUGH Comparison 04/03/2024. Lungs are hyperinflated and clear. Normal cardiomediastinal silhouette. No pleural effusion. Bony structures are intact.
== END 2025-03-06 13:28 | disposition home or self-care (01) ==
LOC: RAD 13:27
PROVIDERS: PCP Nurse Practitioner Family; Visit Provider Family Medicine
DX: R05.8 Other specified cough (principal)
CPT/HCPCS: 71046

== ENCOUNTER → 2025-03-14 10:19 | Outpatient (BNVA) | payer MEDICARE, OTHER, SELFPAY | PROVIDERS: PCP Nurse Practitioner Family; Visit Provider Specialist | DX: G43.711 Chronic migraine without aura, intractable, with status migrainosus (principal) | CPT/HCPCS: 64615; J0585; J9999 ==

== ENCOUNTER 2025-03-25 10:31 | Outpatient (CLI) | payer MEDICARE, OTHER, SELFPAY ==
[2025-03-25 11:26] LABS: Hematocrit 40.1 % (36-47); Hemoglobin 13.30 g/dL (11.27-16.99); Mean Corpuscular HGB Conc 33.2 g/dL (30-55); Mean Corpuscular Hemoglobin 33.1 pg (27-33); Mean Corpuscular Volume 99.8 fl (85-98); Nucleated Red Blood Cells % 0 %; Platelet Count 271 10^3/cmm (157-399); Red Blood Count 4.02 10^6/uL (3.85-5.65); White Blood Count 5.72 10^3/uL (3.29-11.43)
== END 2025-03-25 10:32 | disposition home or self-care (01) ==
LOC: LAB 10:34
PROVIDERS: PCP Nurse Practitioner Family; Visit Provider Internal Medicine
DX: J44.9 Chronic obstructive pulmonary disease, unspecified (principal); T78.40XA Allergy, unspecified, initial encounter; X58.XXXA Exposure to other specified factors, initial encounter
CPT/HCPCS: 82103; 85025; 86003